=== PATIENT | female | born 1950 | race Caucasian/White ===

== ENCOUNTER 2021-03-16 10:59 | Outpatient (CLI) | payer MEDICARE | END 2021-03-16 11:00 | disposition home or self-care (01) | LOC: CSHMAMMO 10:59 | PROVIDERS: ATTEND Obstetrics & Gynecology | DX: Z12.31 Encounter for screening mammogram for malignant neoplasm of breast (principal); Z13.820 Encounter for screening for osteoporosis; N64.89 Other specified disorders of breast; M85.89 Other specified disorders of bone density and structure, multiple sites | CPT/HCPCS: 77063; 77067; 77080 ==

== ENCOUNTER 2021-03-22 12:43 | Outpatient (CLI) | payer MEDICARE | END 2021-03-22 12:44 | disposition home or self-care (01) | LOC: CSHMAMMO 12:43 | PROVIDERS: ATTEND Internal Medicine Endocrinology, Diabetes & Metabolism | DX: N64.89 Other specified disorders of breast (principal) | CPT/HCPCS: 77065; G0279 ==

== ENCOUNTER 2021-05-18 09:59 | Emergency (ER) | payer MEDICARE ==
[2021-05-18] MEDS ORDERED: Lidocaine 1% (PF) 30 ML VIAL ONE (11:34)
[2021-05-18] MEDS ORDERED: cefTRIAXone\\ROCEPHIN 1 GM VIAL ONE (11:34)
[2021-05-18] MEDS ORDERED: Dexamethasone 10 MG/ML VIAL ONE (11:34)
[2021-05-18 22:46] LABS: SARS-CoV-2 PCR by NAA Not Detected (NotDetected)
== END 2021-05-18 12:40 | disposition home or self-care (01) ==
LOC: CSHERS 09:59
DX: R05.9 Cough, unspecified (principal); Z20.822 Contact with and (suspected) exposure to COVID-19
CPT/HCPCS: 71045; 87081; 87430; 87804 ×2; 96372; 99283; U0003; U0005; J0696; J1100; J2001

== ENCOUNTER 2022-02-20 09:56 | Outpatient (CLI) | payer MEDICARE | END 2022-02-20 09:57 | disposition home or self-care (01) | LOC: CSHCT 09:56 | PROVIDERS: ATTEND Neurological Surgery | DX: M50.30 Other cervical disc degeneration, unspecified cervical region (principal); M54.2 Cervicalgia; M47.812 Spondylosis without myelopathy or radiculopathy, cervical region; M67.48 Ganglion, other site; Z98.1 Arthrodesis status | CPT/HCPCS: 72125; 72141 ==

== ENCOUNTER 2022-08-20 08:00 | Outpatient (CLI) | payer MEDICARE | END 2022-08-20 08:01 | disposition home or self-care (01) | LOC: CSHMAMMO 08:00 | DX: N63.25 Unspecified lump in the left breast, overlapping quadrants (principal); M81.0 Age-related osteoporosis without current pathological fracture; M85.89 Other specified disorders of bone density and structure, multiple sites; N63.22 Unspecified lump in the left breast, upper inner quadrant | CPT/HCPCS: 76642; 77066; 77080; G0279 ==

== ENCOUNTER 2023-12-09 11:51 | Emergency (ER) | payer MEDICARE ==
[2023-12-09] MEDS ORDERED: Ketorolac Tromethamine 30 MG (1 mL) VIAL ONE (12:32)
[2023-12-09] MEDS ORDERED: Cyclobenzaprine 10 MG TAB ONE (12:32)
[2023-12-09] MEDS ORDERED: Lidocaine 4% Patch TD SCH (13:00)
[2023-12-10] MEDS ORDERED: Transdermal Patch Removal TOP SCH (01:00)
== END 2023-12-09 14:11 | disposition home or self-care (01) ==
LOC: CSHERS 11:51
DX: M54.41 Lumbago with sciatica, right side (principal); I10 Essential (primary) hypertension
CPT/HCPCS: 96372; 99283; J1885